=== PATIENT | female | born 1950 | race Caucasian/White ===

== ENCOUNTER 2019-03-30 20:30 | Emergency (ER) | payer OTHER, BC ==
[2019-03-30] MEDS ORDERED: FENTANYL CITR 100 MCG/2 ML ONE (21:06)
[2019-03-30] MEDS ORDERED: ONDANSETRON 4 MG/2 ML VIAL ONE (21:07)
[2019-03-30 21:21] LABS: Absolute Lymphocytes (CBC) 1.7 K/uL (0.7-4.9); Basophils % 0.8 % (0-1.3); Hematocrit 39.3 % (36.0-45.0); Lymphocytes % 28.4 % (15.3-44.8); MPV 8.7 fL (7.6-11.3); RBC Red Blood Cell Count 4.12 M/uL (3.86-4.86)
[2019-03-30 21:34] LABS: Urine Bacteria <20 /HPF (<20); Urine Culture Reflex Order NOT NEEDED; Urine RBC <5 /HPF (NONE SEEN)
[2019-03-30 21:39] LABS: BUN Blood Urea Nitrogen 20 mg/dL (7-18); Bicarbonate 26 mmol/L (21-32); Glucose Level 109 mg/dL (74-106); Potassium 3.3 mmol/L (3.5-5.1); Sodium Level 141 mmol/L (136-145); Troponin I < 0.02 ng/mL (0.0-0.045)
[2019-03-30 22:22] LABS: Urine Blood TRACE (NEG); Urine Glucose NEGATIVE (NEG); Urine Protein NEGATIVE (NEG); Urine pH 5.5 (5.0-7.0)
[2019-03-30] MEDS ORDERED: HYDROCODONE/APAP 7.5/325 MG TAB ONE (22:39)
--- NOTE | 2019-03-30 22:44 | ER ---
Nurse's Notes [facility] Name: Juju Patel Age: 69 yrs Sex: Female : 1950 Arrival Date: 03/30/2019 Time: 20:32 Bed 23 Private MD: Toni Hein H Diagnosis: Multiple fractures of ribs, left side-posterior 10th and 11th;Pleural effusion in conditions classified elsewhere Presentation: 03/30 21:12 Presenting complaint: Patient states: Fell on the left side a week ago. Pain is rv increasing everyday and worse today. Transition of care: patient was not received from another setting of care. Onset of symptoms was March 30, 2019 at 15:00. Risk Assessment: Do you want to hurt yourself or someone else? Patient reports no desire to harm self or others. Initial Sepsis Screen: Does the patient meet any 2 criteria? No. Patient's initial sepsis screen is negative. Does the patient have a suspected source of infection? No. Patient's initial sepsis screen is negative. Care prior to arrival: None. 21:12 Method Of Arrival: Ambulatory rv 21:12 Acuity: YAQUELIN 3 rv Triage Assessment: 21:17 Pain:. rv Historical: - Allergies: 21:15 No Known Allergies; rv - Home Meds: 21:15 None [Active]; rv - PMHx: 21:15 Hypertension; Asthma; Depression; High Cholesterol; rv - PSHx: 21:15 None; rv - Immunization history:: Adult Immunizations up to date. - Social history:: Smoking status: Patient/guardian denies using tobacco, never smoked. - Ebola Screening: : No symptoms or risks identified at this time. Screenin:15 Abuse screen: Denies threats or abuse. Denies injuries from another. Nutritional rv screening: No deficits noted. Tuberculosis screening: No symptoms or risk factors identified. Fall Risk None identified. Assessment: 21:17 General: Appears in no apparent distress. comfortable, Behavior is calm, cooperative. rv Pain: Complains of pain in left lateral posterior chest Pain radiates to chest. Neuro: Level of Consciousness is awake, alert, obeys commands, Oriented to person, place, time, situation. Cardiovascular: Patient's skin is warm and dry. Respiratory: Airway is patent. GI: No signs and/or symptoms were reported involving the gastrointestinal system. : No signs and/or symptoms were reported regarding the genitourinary system. EENT: No signs and/or symptoms were reported regarding the EENT system. Derm: Skin is intact. Musculoskeletal: No signs and/or symptoms reported regarding the musculoskeletal system. Vital Signs: 21:13 BP 105 / 92; Pulse 64; Resp 16; Temp 99; Pulse Ox 97% on R/A; Weight 84.82 kg; Height 5 rv ft. 2 in. (157.48 cm); Pain 6/10; 22:00 BP 128 / 86; Pulse 66; Resp 16; Pulse Ox 98% on R/A; rv 22:59 BP 110 / 88; Pulse 64; Resp 16; Temp 98.7; Pulse Ox 97% on R/A; rv 21:13 Body Mass Index 34.20 (84.82 kg, 157.48 cm) rv ED Course: 20:32 Patient arrived in ED. es 20:32 Toni Hein MD is Private Physician. es 20:45 Ildefonso Maurice MD is Attending Physician. roger 20:45 Ildefonso [place] PA is PHCP. cp 20:54 Ceci Hartman, RN is Primary Nurse. ca1 21:05 Lester Verde, [place] is Primary Nurse. rv 21:13 Triage completed. rv 21:15 Patient has correct armband on for positive identification. Placed in gown. Bed in low rv position. Call light in reach. Side rails up X 1. Pulse ox on. NIBP on. 21:15 Splint/sling/ice applied as appropriate. Patient placed Patient notified of wait time. rv Arm band placed on right wrist. EKG completed in triage. Results shown to MD. 21:18 Inserted saline lock: 20 gauge in right antecubital area, using aseptic technique. rv Blood collected. 22:00 First set of blood cultures drawn by me. rv 22:12 CT Chest Abdomen W/ Contrast In Process Unspecified. EDMS 22:25 Second set of blood cultures drawn by me. rv 22:59 No provider procedures requiring assistance completed. IV discontinued, intact, rv bleeding controlled, No redness/swelling at site. Pressure dressing applied. Administered Medications: 21:11 Drug: fentaNYL (PF) 25 mcg Route: IVP; Site: right antecubital; rv 22:58 Follow up: Response: No adverse reaction rv 21:11 Drug: Zofran 4 mg Route: IVP; Site: right antecubital; rv 22:58 Follow up: Response: No adverse reaction rv 22:58 Drug: [place] (7.5 mg-325 mg) 1 tabs Route: PO; rv 22:58 Follow up: Response: Medication administered at discharge. rv Outcome: 22:44 Discharge ordered by . cp 22:59 Discharged to home ambulatory. rv 22:59 Condition: good 22:59 Discharge instructions given to patient, Instructed on discharge instructions, follow up and referral plans. medication usage, Demonstrated understanding of instructions, follow-up care, medications, Prescriptions given X 2. 23:00 Patient left the ED. rv Signatures: Dispatcher [employer] Ildefonso Hoskins MD MD cha Salyer, Edna es Page, Corey, PA Lester Marshall cp, RN RN rv Ceci Hartman RN RN ca1
--- NOTE | 2019-03-30 22:45 | EDPHYS ---
Physician Documentation [facility] Name: Juju Patel Age: 69 yrs Sex: Female : 1950 Arrival Date: 03/30/2019 Time: 20:32 Bed 23 Private MD: Toni Hein H ED Physician Ildefonso Maurice HPI: 03/30 20:55 This 69 yrs old Female presents to ER via Ambulatory with complaints of Back cp Pain. 20:55 The patient presents with pain that is acute. The symptoms are located in the left mid cp back and left lateral posterior chest. Onset: The symptoms/episode began/occurred 1 week(s) ago. The pain does not radiate. Associated signs and symptoms: Pertinent positives: chest pain, cough, Pertinent negatives: abdominal pain, constipation, fever, headache. The problem was sustained during a fall. Severity of symptoms: in the emergency department the symptoms are actually worse, markedly. Patient reports fall onto left lateral lower chest area after fall 1 week ago while [place] cruise [place]. Patient reports she did not seek medical attn and has had increasing pain. Historical: - Allergies: 21:15 No Known Allergies; rv - Home Meds: 21:15 None [Active]; rv - PMHx: 21:15 Hypertension; Asthma; Depression; High Cholesterol; rv - PSHx: 21:15 None; rv - Immunization history:: Adult Immunizations up to date. - Social history:: Smoking status: Patient/guardian denies using tobacco, never smoked. - Ebola Screening: : No symptoms or risks identified at this time. ROS: 21:00 Constitutional: Negative for body aches, chills, fever, poor PO intake. cp 21:00 Eyes: Negative for injury, pain, redness, and discharge. cp 21:00 ENT: Negative for drainage from ear(s), ear pain, sore throat, difficulty swallowing, difficulty handling secretions. 21:00 Cardiovascular: Positive for chest pain, of the left mid back and left lateral posterior chest. 21:00 Respiratory: Positive for cough, with no reported sputum, Negative for shortness of breath, wheezing. 21:00 Abdomen/GI: Negative for abdominal pain, vomiting, diarrhea, constipation, black/tarry stool, rectal bleeding. 21:00 Skin: Negative for rash. 21:00 Neuro: Negative for altered mental status, headache, loss of consciousness, weakness. 21:00 All other systems are negative. Exam: 21:15 ECG was reviewed by the Attending Physician. cp 21:15 Constitutional: The patient appears in no acute distress, alert, awake, cp non-diaphoretic, non-toxic, well developed, well nourished, uncomfortable. 21:15 Head/Face: Normocephalic, atraumatic. cp 21:15 Eyes: Periorbital structures: appear normal, Conjunctiva: normal, no exudate, no injection, Sclera: no appreciated abnormality, Lids and lashes: appear normal, bilaterally. 21:15 ENT: External ear(s): are unremarkable, Nose: is normal, Mouth: is normal, Posterior pharynx: is normal, airway is patent, no erythema, no exudate. 21:15 Neck: C-spine: vertebral tenderness, is not appreciated, crepitus, is not appreciated, ROM/movement: is normal, is supple, without pain, no range of motions limitations, no nuchal rigidity. 21:15 Chest/axilla: Inspection: ecchymosis, that is moderate, of the left lateral posterior chest Palpation: crepitus, is not appreciated, tenderness, that is moderate, of the left mid back and left lateral posterior chest. 21:15 Cardiovascular: Rate: normal, Rhythm: regular, Edema: is not appreciated, JVD: is not appreciated. 21:15 Respiratory: the patient does not display signs of respiratory distress, Respirations: normal, no use of accessory muscles, no retractions, no splinting, no tachypnea, labored breathing, is not present, Breath sounds: are clear throughout, no decreased breath sounds, no stridor, no wheezing. 21:15 Abdomen/GI: Inspection: abdomen appears normal, Bowel sounds: active, all quadrants, Palpation: abdomen is soft and non-tender, in all quadrants, rebound tenderness, is not appreciated, voluntary guarding, is not appreciated, involuntary guarding, is not appreciated. 21:15 Back: pain, that is mild, of the thoracic area, ROM is normal. 21:15 Neuro: Orientation: to person, place \T\ time. Mentation: is normal, Cerebellar function: is grossly normal, Motor: moves all fours, strength is normal, Sensation: no obvious gross deficits, Gait: is steady. Vital Signs: 21:13 BP 105 / 92; Pulse 64; Resp 16; Temp 99; Pulse Ox 97% on R/A; Weight 84.82 kg; Height 5 rv ft. 2 in. (157.48 cm); Pain 6/10; 22:00 BP 128 / 86; Pulse 66; Resp 16; Pulse Ox 98% on R/A; rv 22:59 BP 110 / 88; Pulse 64; Resp 16; Temp 98.7; Pulse Ox 97% on R/A; rv 21:13 Body Mass Index 34.20 (84.82 kg, 157.48 cm) rv MDM: 20:45 Patient medically screened. roger 22:42 Data reviewed: vital signs, nurses notes, lab test result(s), EKG, radiologic studies, cp CT scan. 03/30 20:53 Order name: Basic Metabolic Panel; Complete Time: 21:52 cp 03/30 21:52 Interpretation: Normal except: K 3.3; CL 108; GLUC 109; BUN 20; GFR 71. cp 03/30 20:53 Order name: CBC with Diff; Complete Time: 21:52 cp 03/30 21:52 Interpretation: Normal except: MCV 95.5; EOSINOPHIL % 4.7. cp 03/30 20:53 Order name: Creatinine for Radiology; Complete Time: 21:52 cp 03/30 20:53 Order name: Type And Screen; Complete Time: 22:26 cp 03/30 20:53 Order name: Urine Microscopic Only; Complete Time: 21:52 cp 03/30 20:53 Order name: Troponin I; Complete Time: 21:52 cp 03/30 21:52 Interpretation: Within normal limits: TROP < 0.02. cp 03/30 20:53 Order name: CT Chest Abdomen W/ Contrast cp 03/30 20:53 Order name: EKG; Complete Time: 20:54 cp 03/30 21:16 Order name: Urine Dipstick--Ancillary (enter results); Complete Time: 22:26 ar5 03/30 22:45 Order name: INCENTIVE SPIROMETRY cp 03/30 22:52 Order name: RCOP INCENTIVE SPIROMETERY EDMS 03/30 20:53 Order name: Labs collected and sent; Complete Time: 21:19 cp 03/30 20:53 Order name: Urine Dipstick-Ancillary (obtain specimen); Complete Time: 21:19 cp 03/30 20:53 Order name: EKG - Nurse/Tech; Complete Time: 21:19 cp EC:15 Rate is 65 beats/min. Rhythm is regular. WA interval is normal. QRS interval is normal. cp QT interval is normal. Interpreted by me. Reviewed by me. Administered Medications: 21:11 Drug: fentaNYL (PF) 25 mcg Route: IVP; Site: right antecubital; rv 22:58 Follow up: Response: No adverse reaction rv 21:11 Drug: Zofran 4 mg Route: IVP; Site: right antecubital; rv 22:58 Follow up: Response: No adverse reaction rv 22:58 Drug: [place] (7.5 mg-325 mg) 1 tabs Route: PO; rv 22:58 Follow up: Response: Medication administered at discharge. rv Disposition: 03/31 09:16 Co-signature as Attending Physician, Ildefonso Maurice MD I agree with the assessment and roger plan of care. Disposition: 03/30/19 22:44 Discharged to Home. Impression: Multiple fractures of ribs, left side - posterior 10th and 11th, Pleural effusion in conditions classified elsewhere. - Condition is Stable. - Discharge Instructions: Pleural Effusion, Rib Fracture. - Prescriptions for Ibuprofen 800 mg Oral Tablet - take 1 tablet by ORAL route every 8 hours As needed take with food; 30 tablet. Tylenol- Codeine #3 300-30 mg Oral Tablet - take 2 tablets by ORAL route every 6 hours As needed; 20 tablet. - Medication Reconciliation Form, Thank You Letter, Antibiotic Education, Prescription Opioid Use form. - Follow up: Private Physician; When: 2 - 3 days; Reason: Recheck today's complaints. - Problem is new. - Symptoms have improved. Signatures: Dispatcher [employer] EDIldefonso Kramer MD MD cha Page, Corey, PA PA cp Lester Verde RN RN rv Corrections: (The following items were deleted from the chart) 03/30 22:46 22:44 03/30/2019 22:44 Discharged to Home. Impression: Multiple fractures of ribs, left cp side - posterior 10th and 11th. Condition is Stable. Forms are Medication Reconciliation Form, Thank You Letter, Antibiotic Education, Prescription Opioid Use. Follow up: Private Physician; When: 2 - 3 days; Reason: Recheck today's complaints. Problem is new. Symptoms have improved. cp 23:00 22:46 03/30/2019 22:44 Discharged to Home. Impression: Multiple fractures of ribs, left rv side - posterior 10th and 11th; Pleural effusion in conditions classified elsewhere. Condition is Stable. Discharge Instructions: Rib Fracture, Pleural Effusion. Prescriptions for Ibuprofen 800 mg Oral Tablet - take 1 tablet by ORAL route every 8 hours As needed take with food; 30 tablet, Tylenol-Codeine #3 300-30 mg Oral Tablet - take 2 tablets by ORAL route every 6 hours As needed; 20 tablet. and Forms are Medication Reconciliation Form, Thank You Letter, Antibiotic Education, Prescription Opioid Use. Follow up: Private Physician; When: 2 - 3 days; Reason: Recheck today's complaints. Problem is new. Symptoms have improved. cp
[2019-03-30 23:09] VITALS: BP 110/88; TEMP 98.7; O2SAT 97
--- NOTE | 2019-03-31 07:43 | EKG ---
Test Date: 2019-03-30 Test Time: 21:11:17 [employer]vester: KVNG MEASUREMENT RESULTS: Intervals: Rate: 65 MA: 150 QRSD: 78 QT: 422 QTc: 438 [place]: P: 43 MA: 150 QRS: 2 T: 41 INTERPRETIVE STATEMENTS: Normal sinus rhythm Moderate voltage criteria for LVH, may be normal variant Borderline ECG Compared to ECG 07/30/2012 12:49:42 Left ventricular hypertrophy now present Electronically Signed On 03-31-19 07:42:03 CDT by Román Gillespie
--- NOTE | 2019-03-31 13:10 | RAD REPORT ---
EXAM DESCRIPTION: CT - Chest Abdomen W Con - 03/30/2019 10:12 pm CLINICAL HISTORY: 69 years Female left lateral rib pain from fall 1 week ago COMPARISON: None TECHNIQUE: Images were obtained in axial, sagittal, and coronal planes. Intravenous contrast was adm inistered. This exam was performed according to our departmental dose-optimization program which includes use of Automated Exposure Control, adjustment of the mA and/or kV according to patient size and/or use of i terative reconstruction technique. FINDINGS: Fractures posterior left 10th and 11th ribs. Associated small left pleural effusion. No pn eumothorax. Mild airspace attenuation left lower. No aortic dissection or dilatation. No defects pulmonary arteries bilaterally. Calcified mediastinal and right hilar lymph nodes. Calcified granuloma on right. No lung parenchymal infiltrates or nodules on right. No pneumothorax on right. No abnormality involving the liver. Calcified granuloma involving spleen. Unremarkable pancreas, gall bladder, and adrenal glands bilaterally. Calcification abdominal aorta with no dilatation seen. Symme tric renal function bilaterally. No hydronephrosis bilaterally. Bilateral breast implants. IMPRESSION: Fractures posterior left 10th and 11th ribs. No associated pneumothorax. Small left pleu ral effusion with atelectatic change versus contusion left lower lobe. No acute intra-abdominal abnormality. No evidence for large organ laceration. No aortic dissection or dilatation. No evidence for pulmonary embolus. Electronically signed by: Teresa Singh MD 03/30/2019 10:30 PM CDT Due to temporary technical issues with the PACS/Fluency reporting system, reports are being signed by the in house radiologist as a courtesy to ensure prompt reporting. The interpreting radiologist is f ully responsible for the content of the report.
== END 2019-03-30 23:00 | disposition home or self-care (01) ==
LOC: ER 20:30
DX: S22.42XA Multiple fractures of ribs, left side, initial encounter for closed fracture (principal); W18.30XA Fall on same level, unspecified, initial encounter; Y92.814 Boat as the place of occurrence of the external cause; J90 Pleural effusion, not elsewhere classified; I10 Essential (primary) hypertension; E78.00 Pure hypercholesterolemia, unspecified; J45.909 Unspecified asthma, uncomplicated; F32.9 Major depressive disorder, single episode, unspecified
CPT/HCPCS: 93005; 85025; 80048; 36415; 86900; 86850; 86901; 84484; 74160; 71260; 96375; 96374; 99284; Q9967; J3010; J2405; 81003; 81015

== ENCOUNTER 2021-10-16 15:26 | Emergency (ER) | payer OTHER, BC ==
--- OUTSIDE RECORDS SUMMARY | 2021-10-16 15:30 | XMS REPORT | Continuity of Care Document ---
:1950 Author Organization [facility] t Address [address] [place] [address] Dr. Carranza [address] [place] [id number] Care Team Providers Name Role Phone WATERS_S Attending Clinician Unavailable López Attending Clinician [phone] WATERS_S Admitting Clinician Unavailable Payers Payer Name Policy Type Policy Number Effective Date Expiration Date S sudha [place]: [id number] 2014 [employer] 00:00:00 - [facility] [place] [id number] 2015 [place] (MEDICARE 00:00:00 SUPPLEMENT) Problems This patient has no known problems. Allergies, Adverse Reactions, Alerts This patient has no known allergies or adverse reactions. Medications This patient has no known medications. Procedures This patient has no known procedures. Encounters Start End Encounter Admission Attending Care Care Encounter Source Date/Time Date/Time Type Type Clinicians Facility Department ID 2021-03-02 2021-03-02 Outpatient [facility] [id number] [place] 03:23:00 03:23:00 [facility] 2021-03-02 2021-03-02 Outpatient [facility] [id number] 00:00:00 00:00:00 [place] [id number] 2021-01-19 2021-01-19 Outpatient [facility] [id number] [place] 01:06:00 01:06:00 [facility] 2021-01-19 2021-01-19 Outpatient [facility] [id number] 00:00:00 00:00:00 [place] [id number] Results This patient has no known results.
--- NOTE | 2021-10-16 16:47 | ER ---
Nurse's Notes [facility] Name: Juju Patel Age: 71 yrs Sex: Female : 1950 Arrival Date: 10/16/2021 Time: 15:31 Bed 18 Private MD: Diagnosis: Pain in left leg Presentation: 10/16 15:40 Chief complaint: Patient states: [place] a pop in her left leg and now has pain, unable ww to put weight on it and tingling. Coronavirus screen: Vaccine status: Patient reports receiving the 2nd dose of the covid vaccine. Client denies travel out of the [place] in the last 14 days. Ebola Screen: Patient denies travel to an Ebola-affected area in the 21 days before illness onset. Initial Sepsis Screen: Does the patient meet any 2 criteria? No. Patient's initial sepsis screen is negative. Does the patient have a suspected source of infection? No. Patient's initial sepsis screen is negative. Risk Assessment: Do you want to hurt yourself or someone else? Patient reports no desire to harm self or others. Onset of symptoms was October 16, 2021. 15:40 Method Of Arrival: Wheelchair ww 15:40 Acuity: YAQUELIN 3 ww Triage Assessment: 15:42 General: Appears in no apparent distress. Behavior is cooperative. Pain: Complains of ww pain in buttocks Pain radiates to coccyx, left lower back and right lower back. Neuro: Level of Consciousness is awake, alert, obeys commands, Oriented to person, place, time, situation. Respiratory: Airway is patent Respiratory effort is even, unlabored, Respiratory pattern is regular, symmetrical. GI: No signs and/or symptoms were reported involving the gastrointestinal system. : No signs and/or symptoms were reported regarding the genitourinary system. Derm: Skin is intact. Historical: - Allergies: 15:42 No Known Allergies; ww - Home Meds: 15:42 Prozac Oral [Active]; Lisinopril Oral [Active]; atorvastatin oral [Active]; Albuterol ww Nebulizer [Active]; - PMHx: 15:42 Asthma; Depression; High Cholesterol; Hypertension; ww - PSHx: 15:42 ankle; ww - Immunization history:: Adult Immunizations up to date. - Social history:: Smoking status: Patient denies any tobacco usage or history of. Screenin:44 Abuse screen: Denies threats or abuse. Denies injuries from another. Nutritional ww screening: No deficits noted. Tuberculosis screening: No symptoms or risk factors identified. 16:01 Fall Risk None identified. kd3 Assessment: 16:00 General: Appears in no apparent distress. Behavior is calm, cooperative, appropriate kd3 for age. Pain: Complains of pain in left hip. Pain: Pain radiates to left low back. Neuro: No deficits noted. Cardiovascular: No deficits noted. Respiratory: No deficits noted. GI: No deficits noted. : No deficits noted. EENT: No deficits noted. Derm: No deficits noted. Vital Signs: 15:40 BP 129 / 74; Pulse 67; Resp 18; Temp 97.9; Pulse Ox 100% on R/A; Weight 79.38 kg; ww Height 5 ft. 2 in. (157.48 cm); Pain 4/10; 15:59 BP 121 / 70; Pulse 72; Resp 16; Pulse Ox 100% ; Pain 4/10; kd3 15:40 Body Mass Index 32.01 (79.38 kg, 157.48 cm) ww ED Course: 15:31 Patient arrived in ED. mr 15:42 Triage completed. ww 15:42 Arm band placed on left wrist. ww 15:47 Ivett Lucero, [place] is Primary Nurse. kd3 15:49 Jose Higginbotham PA is PHCP. jr8 15:49 Harshil Gould MD is Attending Physician. jr8 16:01 Patient has correct armband on for positive identification. Placed in gown. Call light kd3 in reach. Side rails up X 1. Pulse ox on. NIBP on. 16:46 Hieu Dumont MD is Referral Physician. jr8 16:57 No provider procedures requiring assistance completed. Patient did not have IV access kd3 during this emergency room visit. 16:59 XRAY Hip LEFT 2 view In Process Unspecified. EDMS Administered Medications: No medications were administered Outcome: 16:46 Discharge ordered by . jr8 16:57 Discharged to home via wheelchair. kd3 16:57 Condition: good 16:57 Discharge instructions given to patient, Instructed on discharge instructions, follow up and referral plans. Demonstrated understanding of instructions, follow-up care, medications, Prescriptions given X 1. 16:58 Patient left the ED. kd3 Signatures: Dispatcher [employer] Susie Olvera mr Jose Higginbotham PA PA jr8 Ivett Lucero RN RN kd3 Rosetta Hung RN RN ww
--- NOTE | 2021-10-16 16:47 | EDPHYS ---
Physician Documentation [facility] Name: Juju Patel Age: 71 yrs Sex: Female : 1950 Arrival Date: 10/16/2021 Time: 15:31 Bed 18 Private MD: ED Physician Harshil Gould HPI: 10/16 16:43 This 71 yrs old Female presents to ER via Wheelchair with complaints of Leg Pain. jr8 16:43 Onset: The symptoms/episode began/occurred acutely, today. Modifying factors: The jr8 symptoms are alleviated by nothing. the symptoms are aggravated by movement, weight bearing. Associated signs and symptoms: The patient has no apparent associated signs or symptoms. The patient has not experienced similar symptoms in the past. The patient has not recently seen a physician. Patient stated that she got up from a seated position and felt a pop to her left greater trochanteric region. Patient stated since then she feels a numbing-like feeling and pain to that area along with having nausea for about 30 minutes post feeling that pop. Has been able to ambulate but with pain.. Historical: - Allergies: 15:42 No Known Allergies; ww - Home Meds: 15:42 Prozac Oral [Active]; Lisinopril Oral [Active]; atorvastatin oral [Active]; Albuterol ww Nebulizer [Active]; - PMHx: 15:42 Asthma; Depression; High Cholesterol; Hypertension; ww - PSHx: 15:42 ankle; ww - Immunization history:: Adult Immunizations up to date. - Social history:: Smoking status: Patient denies any tobacco usage or history of. ROS: 16:43 Eyes: Negative for injury, pain, redness, and discharge, ENT: Negative for injury, jr8 pain, and discharge, Neck: Negative for injury, pain, and swelling, Cardiovascular: Negative for chest pain, palpitations, and edema, Respiratory: Negative for shortness of breath, cough, wheezing, and pleuritic chest pain, Abdomen/GI: Negative for abdominal pain, nausea, vomiting, diarrhea, and constipation, Back: Negative for injury and pain, Skin: Negative for injury, rash, and discoloration, Neuro: Negative for headache, weakness, numbness, tingling, and seizure. 16:43 MS/extremity: Positive for pain, tenderness, of the left leg. Exam: 16:43 Constitutional: This is a well developed, well nourished patient who is awake, alert, jr8 and in no acute distress. Cardiovascular: Regular rate and rhythm with a normal S1 and S2. No gallops, murmurs, or rubs. Normal PMI, no JVD. No pulse deficits. Respiratory: Lungs have equal breath sounds bilaterally, clear to auscultation and percussion. No rales, rhonchi or wheezes noted. No increased work of breathing, no retractions or nasal flaring. Abdomen/GI: Soft, non-tender, with normal bowel sounds. No distension or tympany. No guarding or rebound. No evidence of tenderness throughout. Back: No spinal tenderness. No costovertebral tenderness. Full range of motion. Skin: Warm, dry with normal turgor. Normal color with no rashes, no lesions, and no evidence of cellulitis. Neuro: Awake and alert, GCS 15, oriented to person, place, time, and situation. Cranial nerves II-XII grossly intact. Motor strength 5/5 in all extremities. Sensory grossly intact. 16:43 Musculoskeletal/extremity: Extremities: grossly normal except: noted in the left leg: Patient has point tenderness to the greater trochanteric region. Patient has full range of motion of leg including the hip and knee region. Moderate pain when you abduct and cross the leg to the trochanteric area. Otherwise no external trauma noted no other acute findings., Circulation is intact in all extremities. Sensation intact. Vital Signs: 15:40 BP 129 / 74; Pulse 67; Resp 18; Temp 97.9; Pulse Ox 100% on R/A; Weight 79.38 kg; ww Height 5 ft. 2 in. (157.48 cm); Pain 4/10; 15:59 BP 121 / 70; Pulse 72; Resp 16; Pulse Ox 100% ; Pain 4/10; kd3 15:40 Body Mass Index 32.01 (79.38 kg, 157.48 cm) ww MDM: 15:49 Patient medically screened. jr8 16:43 Data reviewed: vital signs, nurses notes, radiologic studies, plain films. Data jr8 interpreted: Pulse oximetry: on room air is 100 %. Interpretation: normal. Counseling: I had a detailed discussion with the patient and/or guardian regarding: the historical points, exam findings, and any diagnostic results supporting the discharge/admit diagnosis, radiology results, the need for outpatient follow up, a orthopedic surgeon, to return to the emergency department if symptoms worsen or persist or if there are any questions or concerns that arise at home. ED course: Discussed with patient that there is no acute radiographic finding of fracture. We will put her on anti-inflammatory and told her to relax it and give it a week. If it still hurts that she needs to follow-up with orthopedics for possible MRI to see if it was a muscle or tendon injury. Can also look to see if there was a hairline fracture that is not being presented on the plain film. Patient good with this at this time and knows to come back if she were to worsen a point time.. 10/16 15:56 Order name: XRAY Hip LEFT 2 view jr8 Administered Medications: No medications were administered Disposition Summary: 10/16/21 16:46 Discharge Ordered Location: Home jr8 Problem: new jr8 Symptoms: have improved jr8 Condition: Stable jr8 Diagnosis - Pain in left leg jr8 Followup: jr8 - With: Hieu Dumont MD - When: 1 week - Reason: Recheck today's complaints, Continuance of care, Re-evaluation by your physician Discharge Instructions: - Discharge Summary Sheet jr8 - Musculoskeletal Pain jr8 Forms: - Medication Reconciliation Form jr8 - Thank You Letter jr8 - Antibiotic Education jr8 - Prescription Opioid Use jr8 Prescriptions: - meloxicam 15 mg Oral tablet - take 1 tablet by ORAL route once daily As needed; 20 tablet; Refills: 0, jr8 Product Selection Permitted Addendum: 10/19/2021 23:11 Co-signature as Attending Physician, Harshil Gould MD I agree with the assessment and r n plan of care. Attestation: The patient's history, exam findings, diagnostics, and a summary of any interventions or procedures was reviewed in detail with Jose RODRIGUEZ. Signatures: Dispatcher [employer] EDMS Harshil Gould MD MD rn Roszak, Josh, PA PA jr8 Rosetta Hung RN RN ww
[2021-10-16 17:03] VITALS: TEMP 97.9; O2SAT 100
[2021-10-16 17:04] VITALS: BP 121/70
--- NOTE | 2021-10-16 17:12 | RAD REPORT ---
EXAM DESCRIPTION: RAD - Hip Left 2 View - 10/16/2021 4:59 pm CLINICAL HISTORY: Left hip pain FINDINGS: No fracture or dislocation is seen. No significant bone or joint abnormality displayed
== END 2021-10-16 16:58 | disposition home or self-care (01) ==
LOC: ER 15:26
DX: M79.605 Pain in left leg (principal); I10 Essential (primary) hypertension; F41.8 Other specified anxiety disorders; E78.00 Pure hypercholesterolemia, unspecified
CPT/HCPCS: 99283